=== PATIENT | female | born 1955 ===

== ENCOUNTER 2023-10-09 15:08 | Inpatient (IN) | payer MEDICARE, OTHER ==
[~2023-10-09] VITALS: Ht 149.9 cm; Wt 63.5 kg
[2023-10-09] MEDS ORDERED: LOSA100T31 PO (15:42)
[2023-10-09] MEDS ORDERED: ATOR40TA PO (15:42)
[2023-10-09] MEDS ORDERED: AMLO5TAB4 PO (15:42)
[2023-10-09] MEDS ORDERED: LEVO50TA PO (15:42)
[2023-10-09] MEDS ORDERED: CARV6.25 PO (15:42)
[2023-10-09] MEDS ORDERED: SERT50TA PO (15:42)
[2023-10-09] MEDS ORDERED: ZOLPIDEM 5 MG TABLET PO PRN (16:15)
[2023-10-09] MEDS ORDERED: DEXTROSE 50% 50 ML DISP.SYRIN IV PRN (16:45)
[2023-10-09] MEDS ORDERED: ACETAMINOPHEN 325 MG TABLET PO PRN (17:02)
[2023-10-09] MEDS ORDERED: ENOXAPARIN SODIUM 40 MG/0.4 ML DISP.SYRIN SQ ONE (17:03)
[2023-10-09] MEDS ORDERED: ONDANSETRON 4 MG/2 ML VIAL IV PRN (17:19)
[2023-10-09] MEDS ORDERED: INSULIN REGULAR, HUMAN 300 UNITS/3 ML VIAL SQ PRN (17:20)
[2023-10-09 17:26] VITALS: BP 133/75; TEMP 98; O2SAT 95
[2023-10-09] MEDS ORDERED: REMEDY ESSENTIAL ZINC PASTE 113 GM TP PRN (17:30)
[2023-10-09] MEDS: IV NS 1000 ML 1,000 ML IV PRN (19:00)
[2023-10-09] MEDS: ATORVASTATIN 40 MG TABLET PO SCH (20:56)
[2023-10-09] MEDS: DOXYCYCLINE HYCLATE IV 100 MG in IV DEXTROSE 5% 100 ML IV SCH (20:56)
[2023-10-09] MEDS: CEFTRIAXONE 1 G in IV DEXTROSE 5% 50 ML IV SCH (20:58)
[2023-10-09] MEDS ORDERED: MAGNESIUM HYDROXIDE 30 ML LIQUID UDC PO PRN (21:00)
[2023-10-09] MEDS: OSELTAMIVIR PHOSPHATE 75 MG CAPSULE PO SCH (21:12)
[2023-10-09 21:19] VITALS: BP 131/72; TEMP 98; O2SAT 95
[2023-10-09] MEDS: CARVEDILOL 6.25 MG TABLET PO SCH (21:19)
[2023-10-09] MEDS: BLOOD SUGAR DIAGNOSTIC 1 EACH STRIP VI SCH (21:41)
[2023-10-09] MEDS: ENOXAPARIN SODIUM 40 MG/0.4 ML DISP.SYRIN SQ SCH (22:14)
[2023-10-09] MEDS: INSULIN REGULAR, HUMAN 300 UNITS/3 ML VIAL SQ PRN (22:17)
[2023-10-10] MEDS: LEVOTHYROXINE SODIUM 50 MCG TABLET PO SCH (06:10)
[2023-10-10] MEDS: PANTOPRAZOLE SODIUM 40 MG TABLET.DR PO SCH (06:10)
[2023-10-10] MEDS: BLOOD SUGAR DIAGNOSTIC 1 EACH STRIP VI SCH ×4 (06:20→21:18)
[2023-10-10 07:17] LABS: BASOPHILS % (AUTO) 0.1 % (0.0-2.0); EOSINOPHILS % (AUTO) 0.1 % (0.0-7.0); HEMATOCRIT 30.9 % (31.2-41.9); HEMOGLOBIN 10.6 g/dL (10.9-14.3); LYMPHOCYTES # (AUTO) 0.7 K/uL (0.8-4.8); MEAN CORPUSCULAR HEMOGLOBIN 31.5 uug (24.7-32.8); MEAN CORPUSCULAR HGB CONC 34 g/dL (32.3-35.6); MEAN CORPUSCULAR VOLUME 92.3 fL (75.5-95.3); MONOCYTES % (AUTO) 10.3 % (0.0-11.0); NEUTROPHILS # (AUTO) 8.1 K/uL (1.8-8.9); NEUTROPHILS % (AUTO) 82.5 % (38.5-71.5); PLATELET COUNT (AUTO) 202 K/uL (179-408); RED BLOOD CELL COUNT(AUTO) 3.35 MIL/uL (3.63-4.92); RED CELL DISTRIBUTION WIDTH 14.1 % (12.3-17.7); WHITE BLOOD COUNT (AUTO) 9.8 K/uL (3.8-11.8)
[2023-10-10 07:19] VITALS: BP 131/83; TEMP 98.4; O2SAT 95
[2023-10-10 07:23] LABS: CALCIUM 8.5 mg/dL (8.5-10.1); CREATININE 0.7 mg/dL (0.6-1.3); MAGNESIUM 1.7 mg/dL (1.8-2.4); PHOSPHOROUS 1.7 mg/dL (2.5-4.9); POTASSIUM 3.1 mmol/L (3.5-5.1)
[2023-10-10 07:41] LABS: DIFFERENTIAL COMMENT 1
[2023-10-10 08:15] VITALS: BP 144/73; TEMP 98.1; O2SAT 98
[2023-10-10] MEDS: INSULIN REGULAR, HUMAN 300 UNIT/3 ML VIAL SQ PRN ×2 (08:27→10:47)
[2023-10-10] MEDS: SERTRALINE HCL 100 MG TABLET PO SCH (08:37)
[2023-10-10] MEDS: LOSARTAN POTASSIUM 50 MG TABLET PO SCH (08:37)
[2023-10-10] MEDS: CARVEDILOL 6.25 MG TABLET PO SCH ×2 (08:37→21:05)
[2023-10-10] MEDS: AMLODIPINE 5 MG TABLET PO SCH (08:37)
[2023-10-10] MEDS: DOXYCYCLINE HYCLATE IV 100 MG in IV DEXTROSE 5% 100 ML IV SCH ×2 (08:43→22:12)
[2023-10-10] MEDS: OSELTAMIVIR PHOSPHATE 75 MG CAPSULE PO SCH ×2 (08:43→21:01)
[2023-10-10] MEDS: MAGNESIUM OXIDE 400 MG TABLET PO SCH ×2 (11:39→13:20)
[2023-10-10 12:00] VITALS: BP 118/72; TEMP 98; O2SAT 96
[2023-10-10] MEDS: POTASSIUM CHLORIDE 20 MEQ TAB.PRT.SR PO SCH ×2 (13:20→14:02)
[2023-10-10] MEDS: IV NS 1000 ML 1,000 ML IV PRN (13:26)
[2023-10-10 16:00] VITALS: BP 131/88; TEMP 98.1; O2SAT 96
[2023-10-10] MEDS ORDERED: NEUTRA PHOS PACKET PO ONE (16:00)
[2023-10-10 20:22] VITALS: BP 140/65; TEMP 98.5; O2SAT 98
[2023-10-10] MEDS ORDERED: ENOXAPARIN SODIUM 40 MG/0.4 ML DISP.SYRIN SQ SCH (21:00)
[2023-10-10] MEDS: ATORVASTATIN 40 MG TABLET PO SCH (21:01)
[2023-10-10] MEDS: INSULIN REGULAR, HUMAN 300 UNITS/3 ML VIAL SQ PRN (21:17)
[2023-10-10] MEDS: ENOXAPARIN SODIUM 40 MG/0.4 ML DISP.SYRIN SQ SCH (21:18)
[2023-10-10] MEDS: CEFTRIAXONE 1 G in IV DEXTROSE 5% 50 ML IV SCH (22:10)
[2023-10-11 04:20] VITALS: BP 146/81; TEMP 98.4; O2SAT 96
[2023-10-11] MEDS: IV NS 1000 ML 1,000 ML IV PRN ×2 (05:18→22:37)
[2023-10-11] MEDS: PANTOPRAZOLE SODIUM 40 MG TABLET.DR PO SCH (06:54)
[2023-10-11] MEDS: LEVOTHYROXINE SODIUM 50 MCG TABLET PO SCH (06:54)
[2023-10-11] MEDS: BLOOD SUGAR DIAGNOSTIC 1 EACH STRIP VI SCH ×4 (07:01→21:27)
[2023-10-11 07:28] LABS: CALCIUM 8.4 mg/dL (8.5-10.1); CREATININE 0.5 mg/dL (0.6-1.3); MAGNESIUM 1.7 mg/dL (1.8-2.4); PHOSPHOROUS 2.4 mg/dL (2.5-4.9); POTASSIUM 3.4 mmol/L (3.5-5.1)
[2023-10-11 07:57] LABS: BASOPHILS % (AUTO) 0.2 % (0.0-2.0); DIFFERENTIAL COMMENT 0; EOSINOPHILS # (AUTO) 0.1 K/uL (0.0-0.7); EOSINOPHILS % (AUTO) 0.7 % (0.0-7.0); HEMATOCRIT 28.8 % (31.2-41.9); HEMOGLOBIN 9.8 g/dL (10.9-14.3); LYMPHOCYTES % (AUTO) 10.1 % (20.5-51.5); MEAN CORPUSCULAR HGB CONC 34 g/dL (32.3-35.6); MEAN CORPUSCULAR VOLUME 91.3 fL (75.5-95.3); MONOCYTES % (AUTO) 10.4 % (0.0-11.0); NEUTROPHILS # (AUTO) 7.4 K/uL (1.8-8.9); NEUTROPHILS % (AUTO) 78.6 % (38.5-71.5); PLATELET COUNT (AUTO) 223 K/uL (179-408); RED BLOOD CELL COUNT(AUTO) 3.15 MIL/uL (3.63-4.92); RED CELL DISTRIBUTION WIDTH 14.2 % (12.3-17.7); WHITE BLOOD COUNT (AUTO) 9.4 K/uL (3.8-11.8)
[2023-10-11 08:00] VITALS: BP 151/61; TEMP 98.1; O2SAT 93
[2023-10-11] MEDS: SERTRALINE HCL 100 MG TABLET PO SCH (09:36)
[2023-10-11] MEDS: AMLODIPINE 5 MG TABLET PO SCH (09:37)
[2023-10-11] MEDS: CARVEDILOL 6.25 MG TABLET PO SCH ×2 (09:37→21:11)
[2023-10-11] MEDS: LOSARTAN POTASSIUM 50 MG TABLET PO SCH (09:37)
[2023-10-11] MEDS: DOXYCYCLINE HYCLATE IV 100 MG in IV DEXTROSE 5% 100 ML IV SCH ×2 (09:38→23:24)
[2023-10-11] MEDS: OSELTAMIVIR PHOSPHATE 75 MG CAPSULE PO SCH ×2 (10:18→21:12)
[2023-10-11 11:30] VITALS: BP 132/79; TEMP 98; O2SAT 97
[2023-10-11] MEDS: INSULIN REGULAR, HUMAN 300 UNIT/3 ML VIAL SQ PRN ×3 (12:10→21:33)
[2023-10-11] MEDS: MAGNESIUM OXIDE 400 MG TABLET PO SCH ×2 (15:10→16:42)
[2023-10-11] MEDS ORDERED: POTASSIUM CHLORIDE 20 MEQ TAB.PRT.SR PO ONE (15:30)
[2023-10-11] MEDS ORDERED: NEUTRA PHOS PACKET PO ONE (16:00)
[2023-10-11 16:30] VITALS: BP 146/82; TEMP 97.8; O2SAT 97
[2023-10-11] MEDS: PROTEIN SUPPLEMENT (PROSTAT) 30 ML LIQUID PO SCH (16:53)
[2023-10-11 20:21] VITALS: BP 151/86; TEMP 98.8; O2SAT 96
[2023-10-11] MEDS: ENOXAPARIN SODIUM 40 MG/0.4 ML DISP.SYRIN SQ SCH (21:12)
[2023-10-11] MEDS: ATORVASTATIN 40 MG TABLET PO SCH (21:12)
[2023-10-11] MEDS: CEFTRIAXONE 1 G in IV DEXTROSE 5% 50 ML IV SCH (22:33)
[2023-10-12 04:38] VITALS: BP 165/83; TEMP 98.8; O2SAT 95
[2023-10-12] MEDS: PANTOPRAZOLE SODIUM 40 MG TABLET.DR PO SCH (06:48)
[2023-10-12] MEDS: LEVOTHYROXINE SODIUM 50 MCG TABLET PO SCH (06:48)
[2023-10-12 06:50] LABS: BASOPHILS % (AUTO) 0.3 % (0.0-2.0); EOSINOPHILS # (AUTO) 0.1 K/uL (0.0-0.7); EOSINOPHILS % (AUTO) 1.1 % (0.0-7.0); HEMATOCRIT 31.9 % (31.2-41.9); HEMOGLOBIN 10.9 g/dL (10.9-14.3); LYMPHOCYTES % (AUTO) 12.9 % (20.5-51.5); MEAN CORPUSCULAR HEMOGLOBIN 30.9 uug (24.7-32.8); MEAN CORPUSCULAR HGB CONC 34 g/dL (32.3-35.6); MEAN CORPUSCULAR VOLUME 90.6 fL (75.5-95.3); MONOCYTES % (AUTO) 12.9 % (0.0-11.0); NEUTROPHILS # (AUTO) 5.8 K/uL (1.8-8.9); NEUTROPHILS % (AUTO) 72.8 % (38.5-71.5); PLATELET COUNT (AUTO) 282 K/uL (179-408); RED BLOOD CELL COUNT(AUTO) 3.52 MIL/uL (3.63-4.92); RED CELL DISTRIBUTION WIDTH 14.3 % (12.3-17.7)
[2023-10-12] MEDS: BLOOD SUGAR DIAGNOSTIC 1 EACH STRIP VI SCH ×4 (06:58→21:08)
[2023-10-12 07:10] LABS: DIFFERENTIAL COMMENT 1
[2023-10-12 07:44] LABS: CREATININE 0.6 mg/dL (0.6-1.3); MAGNESIUM 1.7 mg/dL (1.8-2.4); PHOSPHOROUS 3.7 mg/dL (2.5-4.9); POTASSIUM 3.5 mmol/L (3.5-5.1)
[2023-10-12 07:52] LABS: CALCIUM 8.7 mg/dL (8.5-10.1)
[2023-10-12] MEDS: INSULIN REGULAR, HUMAN 300 UNIT/3 ML VIAL SQ PRN ×3 (08:15→17:09)
[2023-10-12] MEDS: DOXYCYCLINE HYCLATE 100 MG TABLET PO SCH ×2 (08:16→21:02)
[2023-10-12] MEDS: CARVEDILOL 6.25 MG TABLET PO SCH ×2 (08:16→21:03)
[2023-10-12] MEDS: AMLODIPINE 5 MG TABLET PO SCH (08:16)
[2023-10-12] MEDS: LOSARTAN POTASSIUM 50 MG TABLET PO SCH (08:16)
[2023-10-12] MEDS: SERTRALINE HCL 100 MG TABLET PO SCH (08:16)
[2023-10-12] MEDS: GLUCERNA SHAKE 237 ML CAN PO SCH (08:17)
[2023-10-12] MEDS: PROTEIN SUPPLEMENT (PROSTAT) 30 ML LIQUID PO SCH ×2 (08:17→17:10)
[2023-10-12] MEDS: OSELTAMIVIR PHOSPHATE 75 MG CAPSULE PO SCH ×2 (08:17→21:03)
[2023-10-12 09:40] VITALS: BP 143/85; TEMP 98; O2SAT 96
[2023-10-12] MEDS ORDERED: MAGNESIUM OXIDE 400 MG TABLET PO ONE (10:00)
[2023-10-12 11:55] VITALS: BP 144/76; TEMP 98.4; O2SAT 95
[2023-10-12 16:47] VITALS: BP 154/83; TEMP 98.4; O2SAT 96
[2023-10-12] MEDS: CEFTRIAXONE 1 G in IV DEXTROSE 5% 50 ML IV SCH (20:00)
[2023-10-12 20:25] VITALS: BP 144/69; TEMP 98.9; O2SAT 96
[2023-10-12] MEDS: ATORVASTATIN 40 MG TABLET PO SCH (21:02)
[2023-10-12] MEDS: AMOXICILLIN-CLAVUL 500-125MG TABLET PO SCH (21:02)
[2023-10-12] MEDS: ENOXAPARIN SODIUM 40 MG/0.4 ML DISP.SYRIN SQ SCH (21:03)
[2023-10-12] MEDS: INSULIN REGULAR, HUMAN 300 UNITS/3 ML VIAL SQ PRN (21:17)
[2023-10-13 04:36] VITALS: BP 163/92; TEMP 98.2; O2SAT 96
[2023-10-13] MEDS: LEVOTHYROXINE SODIUM 50 MCG TABLET PO SCH (06:30)
[2023-10-13] MEDS: PANTOPRAZOLE SODIUM 40 MG TABLET.DR PO SCH (06:30)
[2023-10-13] MEDS: BLOOD SUGAR DIAGNOSTIC 1 EACH STRIP VI SCH ×2 (06:57→11:48)
[2023-10-13] MEDS: INSULIN REGULAR, HUMAN 300 UNIT/3 ML VIAL SQ PRN ×2 (07:25→11:49)
[2023-10-13 08:00] VITALS: BP 147/68; TEMP 98.9; O2SAT 97
[2023-10-13 08:35] LABS: BASOPHILS % (AUTO) 0.3 % (0.0-2.0); EOSINOPHILS # (AUTO) 0.1 K/uL (0.0-0.7); EOSINOPHILS % (AUTO) 0.6 % (0.0-7.0); HEMATOCRIT 33.8 % (31.2-41.9); HEMOGLOBIN 11.6 g/dL (10.9-14.3); LYMPHOCYTES # (AUTO) 0.9 K/uL (0.8-4.8); LYMPHOCYTES % (AUTO) 9.9 % (20.5-51.5); MEAN CORPUSCULAR HEMOGLOBIN 31.1 uug (24.7-32.8); MEAN CORPUSCULAR HGB CONC 34 g/dL (32.3-35.6); MEAN CORPUSCULAR VOLUME 90.6 fL (75.5-95.3); MONOCYTES # (AUTO) 0.9 K/uL (0.1-1.30); MONOCYTES % (AUTO) 10.5 % (0.0-11.0); NEUTROPHILS # (AUTO) 6.8 K/uL (1.8-8.9); NEUTROPHILS % (AUTO) 78.7 % (38.5-71.5); PLATELET COUNT (AUTO) 317 K/uL (179-408); RED BLOOD CELL COUNT(AUTO) 3.73 MIL/uL (3.63-4.92); WHITE BLOOD COUNT (AUTO) 8.6 K/uL (3.8-11.8)
[2023-10-13] MEDS: AMOXICILLIN-CLAVUL 500-125MG TABLET PO SCH (08:54)
[2023-10-13] MEDS: OSELTAMIVIR PHOSPHATE 75 MG CAPSULE PO SCH (08:54)
[2023-10-13] MEDS: LOSARTAN POTASSIUM 50 MG TABLET PO SCH (08:55)
[2023-10-13] MEDS: DOXYCYCLINE HYCLATE 100 MG TABLET PO SCH (08:55)
[2023-10-13] MEDS: AMLODIPINE 5 MG TABLET PO SCH (08:55)
[2023-10-13] MEDS: SERTRALINE HCL 100 MG TABLET PO SCH (08:56)
[2023-10-13] MEDS: CARVEDILOL 6.25 MG TABLET PO SCH (08:56)
[2023-10-13] MEDS: PROTEIN SUPPLEMENT (PROSTAT) 30 ML LIQUID PO SCH (08:57)
[2023-10-13 09:05] LABS: CALCIUM 8.8 mg/dL (8.5-10.1); CREATININE 0.7 mg/dL (0.6-1.3); MAGNESIUM 1.9 mg/dL (1.8-2.4); PHOSPHOROUS 3.6 mg/dL (2.5-4.9); POTASSIUM 3.5 mmol/L (3.5-5.1)
[2023-10-13 09:17] LABS: DIFFERENTIAL COMMENT 1
[2023-10-13] MEDS: GLUCERNA SHAKE 237 ML CAN PO SCH (09:18)
[2023-10-13 11:50] VITALS: BP 112/66; TEMP 98.3; O2SAT 97
[2023-10-13] MEDS ORDERED: INSU100V7 SQ (14:15)
== END 2023-10-13 15:35 | disposition home or self-care (01) | DRG 871 ==
LOC: MEDSURG3 15:08 → TELE3 19:53 → MEDSURG3 10-10 10:52
PROVIDERS: ADMIT Student in an Organized Health Care Education/Training Program; ATTEND Student in an Organized Health Care Education/Training Program
DX: A41.89 Other specified sepsis (principal); J10.00 Influenza due to other identified influenza virus with unspecified type of pneumonia; E78.5 Hyperlipidemia, unspecified; I10 Essential (primary) hypertension; E11.9 Type 2 diabetes mellitus without complications; E03.9 Hypothyroidism, unspecified; Z79.890 Hormone replacement therapy; Z79.899 Other long term (current) drug therapy
CPT/HCPCS: 36415; 83605; 83735; 84100; 85025; G0378; J0696; J1650; J1815; J3490; J7040